=== PATIENT | female | born 1940 | race Caucasian/White ===

== ENCOUNTER 2019-08-29 10:22 | Outpatient (CLI) | payer MEDICARE, SELFPAY ==
--- NOTE | 2019-08-29 10:30 | MM_ITS ---
WS: [id number] BILATERAL DIGITAL SCREENING MAMMOGRAM WITH CAD CLINICAL INFORMATION: SCREENING HISTORY: Screening mammogram. No current complaints. COMPARISON: TECHNIQUE: Bilateral CC and MLO views. FINDINGS: Fatty-replaced breasts bilaterally. A few stable punctate calcifications. No suspicious focal mass, a symmetry, calcifications, or architectural distortion. No evidence of malignancy. MM/[place] [id number] IMPRESSION: BI-RADS: 2-Benign FOLLOW UP: 1 Year Follow-up Recommend return to annual screening mammography.
== END 2019-08-29 10:23 | disposition home or self-care (01) ==
LOC: RADSHAW 10:26
PROVIDERS: Family Provider Family Medicine; PCP Family Medicine; Visit Provider Family Medicine
DX: Z12.31 Encounter for screening mammogram for malignant neoplasm of breast (principal)
CPT/HCPCS: 77067

== ENCOUNTER 2020-02-19 13:11 | Outpatient (CLI) | payer MEDICARE, SELFPAY ==
--- NOTE | 2020-02-19 13:19 | USCV_ITS ---
Marika Manning Age: 79 Gender: F : 1940 Exam Date: 02/19/2020 13:15 Ordering Phys: Wanda Kaur MD Technologist: Fariba Sapp Exam Location: [facility] – [place] Indication: CAROTID STENOSIS Risk Factors: None Previous Vascular Surgery: None Right Brachial BP: / Left Brachial BP: / Right Left Velocity (cm/s) Spectral Plaque Velocity (cm/s) Spectral Plaque Syst/Diast Broadening Syst/Diast Broadening 81.60/ 18.70 Prox CCA 56.50 / 17.30 66.20/ 15.40 Mid CCA 58.50 / 18.90 63.00/ 18.70 Distal CCA 55.90 / 15.60 56.85/ 14.60 Prox ICA 63.20 / 26.30 62.10/ 16.90 Mid ICA 77.50 / 32.80 41.90/ 16.90 Distal ICA 53.30 / 21.90 79.75 ECA 48.40 0.94 ICA/CCA 1.33 Antegrade Vertebral Antegrade 32.20/ 11.70 cm/s 32.40/ 12.40 cm/s Tri Subclavian Tri 99.80 145.5 0 CONCLUSIONS Right ICA stenosis <50%. Mild atheromatous plaque right carotid bulb/ICA. Left ICA stenosis <50%. Moderate atheromatous plaque left carotid bulb/ICA. Normal antegrade Doppler flow noted in the right vertebral artery. Normal antegrade Doppler flow noted in the left vertebral artery. Damaso Diaz MD (Electronically Signed) Final Date: 19 February 2020 15:56 S
== END 2020-02-19 13:12 | disposition home or self-care (01) ==
LOC: US 13:14
PROVIDERS: PCP Family Medicine; Visit Provider Family Medicine
DX: I65.23 Occlusion and stenosis of bilateral carotid arteries (principal)
CPT/HCPCS: 93880

== ENCOUNTER 2020-08-03 15:22 | Outpatient (CLI) | payer MEDICARE, SELFPAY ==
--- NOTE | 2020-08-03 15:27 | XR_ITS ---
WS: [id number] Bone mineral density performed on a XD NutritionXA, 08/03/2020 Clinical data: ASYMPTOMATIC POSTMENOPAUSAL STATE Comparison study: DEXA scan, 07/17/2018 Findings: The first 4 lumbar vertebral bodies demonstrated the bone mineral density of 1.199 g/cm2 for a young adult T score of 0.2. Measurement of the left hip reveals a bone mineral density of 0.858 g/cm2 with a young adult T score of -1.2. Measurement of the right hip reveals the bone mineral density of 0.941 g/cm2 for young adult T score of -0.5. XR/XR DEXA axial skeleton* [id number] Impression: 1. The bone mineral density of the lumbar spine has diminished slightly but is still normal. 2. The bone mineral density of the hips has diminished slightly compared to the prior study. 3. The left hip shows osteopenia and the right hip shows normal bone mineral de nsity.
== END 2020-08-03 15:23 | disposition home or self-care (01) ==
LOC: RADWPI 15:27
PROVIDERS: PCP Family Medicine; Visit Provider Family Medicine
DX: Z78.0 Asymptomatic menopausal state (principal); M85.88 Other specified disorders of bone density and structure, other site
CPT/HCPCS: 77080

== ENCOUNTER 2020-09-02 07:26 | Outpatient (CLI) | payer MEDICARE, SELFPAY ==
[2020-09-02 07:41] VITALS: BMI 31.4
--- NOTE | 2020-09-02 07:43 | NMCV_ITS ---
NM jia perf SPECT r/s* [id number] Marika Manning Age: 80 Gender: F : 1940 Exam Date: 09/02/2020 08:53 Ordering Phys: Mel Araujo MD ([email or web address]) Technologist: OLIVIA Rouse Exam Location: [facility] Indications: SOB STRESS TEST Please see [facility] IMAGE PROTOCOL Rest/Stress 1 Lexiscan Day Radiopharmaceutical Dose (mCi) Administration Site Administered by Rest: Tc-99m 10.7 IV OLIVIA Rouse Sestamibi Stress:Tc-99m 32.8 IV OLIVIA Rouse Sestamibi Rest: 02-Sep-2020 60 Discovery 630 Stress: 02-Sep-2020 45 Discovery 630 0.4mg Lexiscan. Supine position only as patient was unable to lay prone. SPECT RESULTS Technical Quality: Good Raw Data Analysis: Breast attenuation Image Corrections: No attenuation or motion correction applied Summed Stress Score: 4 Summed Rest Score: 2 Summed Difference Score: 3 PERFUSION FINDINGS Small to moderate area of decreased tracer uptake in the mid inferolateral and apical lateral segments. A subtle area of reversibility was noted in the inferolateral region FUNCTIONAL RESULTS (calculated via Gated SPECT) Stress Image LV EF (%): 71 Stress EDV (mL):66 TID: 1.23 Stress ESV (mL):19 FUNCTIONAL FINDINGS: Segmental wall motion analysis revealing no gross wall motion normalities IMPRESSIONS 1. Myocardial perfusion imaging revealing a small to moderate area of decreased tracer uptake in the mid inferolateral and apical lateral regions, with a subtle area of reversibility suggestive of myocardial scarring in the distribution of the left circumflex artery with subtle areaof ischemia. 2. Normal LV ejection fraction 71%. 3. LV wall motion analysis revealing no gross wall motion normalities. 4. Normal LV volume 5. Elevated transient ischemic dilatation ratio, may suggest endocardial ischemia. Clinical correlation is recommended. No previous studies are available for comparison Dr Mel Araujo MD FACC (Electronically Signed) Final Date: 02 September 2020 18:28 S
--- NOTE | 2020-09-02 07:43 | ECG_ITS ---
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 Interpretive Statements NAME OF STUDY: LEXISCAN SESTAMIBI STRESS TEST INDICATION: Chest Pain PROCEDURE: At the baseline, the EKG revealed sinus bradycardia with a rate of [address]-T changes. The baseline blood pressure was 136/90 mm Hg with a heart rate of 58 beats/min. Lexiscan was infused over a period of 20 seconds. A total of 0.4 milligrams of Lexiscan was infused. The stress phase was continued for a total of 5 minutes. Heart rate at the end of the stress phase was 68 with a blood pressure 150/86. The EKG at the peak infusion revealed no significant changes. Sestamibi was injected 20 seconds after the Lexiscan infusion. Blood pressure at the end of the recovery phase was 153/87 with a heart rate of 63 per minute. CONCLUSION: 1. No significant EKG changes with the LexiScan infusion 2. No LexiScan induced chest pain or cardiac arrhythmia 3. Normal blood pressure and heart rate response 4. Sestamibi/sestamibi perfusion scan pending; see separate report. Electronically Signed On 09-03-2020 13:56:17 AUDITING CLERK by Mel Araujo M.D. [id number]
[2020-09-02] MEDS: regadenoson 0.4 Mg/5 ml Syringe IVP (09:23)
[2020-09-02 09:53] VITALS: BP 153/87; PULSE 64
== END 2020-09-02 07:27 | disposition home or self-care (01) ==
PROVIDERS: PCP Family Medicine; Visit Provider Internal Medicine Cardiovascular Disease
DX: R06.02 Shortness of breath (principal); R07.89 Other chest pain; I25.9 Chronic ischemic heart disease, unspecified
CPT/HCPCS: 78452; 93017; A9500; J2785

== ENCOUNTER 2020-11-12 13:21 | Outpatient (CLI) | payer MEDICARE, SELFPAY ==
--- NOTE | 2020-11-12 13:25 | MM_ITS ---
WS: [id number] BILATERAL SCREENING DIGITAL MAMMOGRAM WITH CAD HISTORY: SCREENING COMPARISON: 08/29/2019, 07/17/2018 Bilateral CC and MLO views submitted. Computer aided detection analyzed. Breast composition: There are scattered areas of fibroglandular density. No suspicious masses, microc alcifications or architectural distortion. Benign calcifications in each breast. MM/[place] [id number] IMPRESSION: BI-RADS: 2-Benign FOLLOW UP: 1 Year Follow-up
== END 2020-11-12 13:22 | disposition home or self-care (01) ==
LOC: RADSHAW 13:25
PROVIDERS: PCP Family Medicine; Visit Provider Family Medicine
DX: Z12.31 Encounter for screening mammogram for malignant neoplasm of breast (principal)
CPT/HCPCS: 77067

== ENCOUNTER 2021-03-15 13:47 | Outpatient (CLI) | payer MEDICARE, SELFPAY ==
--- NOTE | 2021-03-15 13:53 | USCV_ITS ---
Marika Manning Age: 80 Gender: F : 1940 Exam Date: 03/15/2021 14:13 Ordering Phys: Wanda Kaur MD Technologist: Exam Location: [facility] [place] Indication: HX OF CCA DISEASE Risk Factors: Previous Vascular Surgery: Right Brachial BP: / Left Brachial BP: / Right Left Velocity (cm/s) Spectral Plaque Velocity (cm/s) Spectral Plaque Syst/Diast Broadening Syst/Diast Broadening 60.50/ 14.30 Prox CCA 57.10 / 15.00 55.50/ 16.80 Mid CCA 59.10 / 14.00 59.70/ 12.60 Hetro Distal CCA 42.60 / 12.40 Hetro 48.70/ 11.80 Prox ICA 37.30 / 9.50 51.30/ 8.40 Mid ICA 50.30 / 19.50 60.50/ 20.20 Distal ICA 70.60 / 19.30 67.20 ECA 55.10 1.00 ICA/CCA 1.19 Vertebral Antegrade 34.60/ 11.00 cm/s 35.00/ 13.00 cm/s Tri Subclavian Tri 98.20 CONCLUSIONS Right ICA stenosis <50%. Mild atheromatous plaque right carotid bulb/ICA. Left ICA stenosis <50%. Mild atheromatous plaque left carotid bulb/ICA. Normal antegrade Doppler flow noted in the right vertebral artery. Normal antegrade Doppler flow noted in the left vertebral artery. Damaso Diaz MD (Electronically Signed) Final Date: 15 March 2021 15:46 S
== END 2021-03-15 13:48 | disposition home or self-care (01) ==
LOC: US 13:50
PROVIDERS: PCP Family Medicine; Visit Provider Family Medicine
DX: I65.23 Occlusion and stenosis of bilateral carotid arteries (principal)
CPT/HCPCS: 93880

== ENCOUNTER 2022-02-23 10:37 | Outpatient (CLI) | payer MEDICARE, SELFPAY ==
--- NOTE | 2022-02-23 10:58 | MM_ITS ---
WS: [id number] Bilateral screening 3D tomosynthesis digital mammogram, 02/23/2022 Clinical Data: SCREENING Comparison: 11/12/2020, 08/29/2019, 07/17/2018, 07/04/2017, 06/21/2016, 06/18/2015, 06/09/2014, 06/05/20 13, 05/17/2012, 02/28/2011, 01/31/2010, 12/22/2008, 11/18/2007. Findings: The breast parenchymal pattern shows fat replacement. No spiculated masses or clustered calcification s are seen. There are no secondary signs of carcinoma. There are mole markers on the left breast. The re are lymph nodes in both axilla. MM/[place] [id number] Impression: 1. Negative bilateral mammogram unchanged. 2. Recommend annual screening mammograms. BIRADS: 1-Negative FOLLOW UP: 1 Year Follow-up The CAD wash test checker was used.
== END 2022-02-23 10:38 | disposition home or self-care (01) ==
LOC: RAD 10:38
PROVIDERS: PCP Family Medicine; Visit Provider Family Medicine
DX: Z12.31 Encounter for screening mammogram for malignant neoplasm of breast (principal)
CPT/HCPCS: 77063; 77067

== ENCOUNTER → 2022-03-16 15:30 | Outpatient (BNVA) | payer MEDICARE, SELFPAY | PROVIDERS: PCP Family Medicine; Visit Provider Internal Medicine Cardiovascular Disease | DX: R06.02 Shortness of breath (principal); R07.89 Other chest pain; I50.33 Acute on chronic diastolic (congestive) heart failure | CPT/HCPCS: 36415; 80048; 83880; 99214 ==

== ENCOUNTER 2022-04-12 08:32 | Outpatient (CLI) | payer MEDICARE, SELFPAY ==
[2022-04-12 09:36] VITALS: BMI 30.3
--- NOTE | 2022-04-12 09:38 | ECG_ITS ---
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 Interpretive Statements NAME OF STUDY: LEXISCAN SESTAMIBI STRESS TEST INDICATION: Chest Pain, PROCEDURE: At the baseline, the EKG revealed sinus bradycardia with right bundle branch block. Diffuse nonspecific T wave changes. The baseline blood pressure was 105/69 mm Hg with a heart rate of 53 beats/min. Lexiscan was infused over a period of 20 seconds. A total of 0.4 milligrams of Lexiscan was infused. The stress phase was continued for a total of 5 minutes. Heart rate at the end of the stress phase was 74 with a blood pressure 102/67. The EKG at the peak infusion revealed no significant changes. Sestamibi was injected 20 seconds after the Lexiscan infusion. Blood pressure at the end of the recovery phase was 112/68 with a heart rate of 71 per minute. CONCLUSION: 1. No significant EKG changes with the LexiScan infusion 2. No LexiScan induced chest pain or cardiac arrhythmia 3. Normal blood pressure and heart rate response 4. Sestamibi/sestamibi perfusion scan pending; see separate report. Electronically Signed On 04-12-2022 23:50:24 CDT by Mel Araujo M.D. [id number]
--- NOTE | 2022-04-12 09:39 | NMCV_ITS ---
NM jia perf SPECT r/s* [id number] Marika Manning Age: 81 Gender: F : 1940 Exam Date: 04/12/2022 09:39 Ordering Phys: Mel Araujo MD ([email or web address]) Technologist: OLIVIA Dunaway Exam Location: [facility] Indications: CHEST PAIN STRESS TEST Please see separate [facility] for full [facility] IMAGE PROTOCOL Rest/Stress 1 Lexiscan Day Radiopharmaceutical Dose (mCi) Administration Site Administered by Rest: Tc-99m 10.6 IV OLIVIA Rouse Sestamibi Stress:Tc-99m 33.0 IV OLIVAI Rosue Sestamibi Rest: 12-Apr-2022 60 Discovery 630 Stress: 12-Apr-2022 30 Discovery 630 0.4mg Lexiscan. Images obtained in supine and prone position. SPECT RESULTS Technical Quality: Excellent Raw Data Analysis: Normal Image Corrections: No attenuation or motion correction applied Summed Stress Score: 2 Summed Rest Score: 2 Summed Difference Score: 0 PERFUSION FINDINGS Small area of slightly decreased tracer uptake in the mid inferolateral and apical lateral regions. No significant reversibility was noted in this region. FUNCTIONAL RESULTS (calculated via Gated SPECT) Stress Image LV EF (%): 82 Stress EDV (mL):68 TID: 0.84 Stress ESV (mL):12 FUNCTIONAL FINDINGS: Segmental wall motion analysis revealing no gross wall motion abnormalities IMPRESSIONS 1. Myocardial perfusion imaging revealing small area of persistent decreased tracer uptake in the mid inferolateral and apical lateral regions, suggestive of myocardial scarring versus attenuation artifact. 2. Normal LV ejection fraction of 82%. 3. LV wall motion analysis revealing no gross wall motion normalities. 4. Normal LV volume Low probability for coronary ischemia, based on the above findings Compared to the study from 09/02/2020, the current study does not reveal any evidence of ischemia Dr Mel Araujo MD [facility] (Electronically Signed) Final Date: 12 April 2022 19:01 S
[2022-04-12] MEDS: regadenoson 0.4 Mg/5 ml Syringe IVP (10:43)
== END 2022-04-12 08:33 | disposition home or self-care (01) ==
PROVIDERS: PCP Family Medicine; Visit Provider Internal Medicine Cardiovascular Disease
DX: R07.9 Chest pain, unspecified (principal)
CPT/HCPCS: 78452; A9500; J2785

== ENCOUNTER 2022-07-09 09:58 | Emergency (ER) | payer MEDICARE, SELFPAY ==
[2022-07-09 10:20] VITALS: BP 172/115; PULSE 55; RESP 16; TEMP 36.6; O2SAT 94
[2022-07-09 10:24] VITALS: PULSE 53; O2SAT 95
--- NOTE | 2022-07-09 10:38 | XRR_ITS ---
PROCEDURE INFORMATION: Exam: XR Left Tibia and Fibula Exam date and time: 07/09/2022 12:01 PM Age: 81 years old Clinical indication: Injury or trauma; Other: Hit with shopping cart; Blunt trauma; Lower leg; Left TECHNIQUE: Imaging protocol: Radiologic exam of the Left tibia and fibula. Views: 2 views. COMPARISON: No relevant prior studies available. FINDINGS: Bones/joints: Negative for acute bony abnormality Soft tissues: Soft tissue edema is seen in the lateral ankle consistent with a sprain injury XR/XR tibia fibula LT 2V [id number] IMPRESSION: 1. No acute bone abnormality. 2. Soft tissue edema consistent with inversion sprain
--- NOTE | 2022-07-09 10:41 | W.ED.EXTPRO ---
HPI - Extremity Problem General: Chief complaint: Extremity Injury, Lower Stated complaint: Left injury Time Seen by Provider: 07/09/22 10:27 History of Present Illness: 81-year-old female presents with left lower leg injury. Patient reports that she was pulling on a stuck grocery cart when it rapidly came out and struck her in the lower leg. This happened about a week ago. She is has an area of bruising and swelling is extremely painful with the whole left lower leg swollen. She was seen in urgent care 2 days ago and started on antibiotics with concern for a possible infection. Patient reports that she continues to have significant pain when she stands up in the area. She does not have any posterior calf pain. She has not had an x-ray of the area. Review of Systems General: Reports: 10 or more systems reviewed and unremarkable except in HPI and below Musc: Reports: other (Please see HPI) Skin/Breast: Reports: other (Please see HPI) PFSH ED PFSH: Medical History Atypical chest pain EKG done on 07/12/2020 revealed a sinus rhythm with low voltage complexes in the precordial leads. Poor R wave progression. Benign essential HTN Old cerebrovascular accident (CVA) without late effect Tricuspid regurgitation Ventricular arrhythmia Surgical History History of nasal surgery Hx of cataract extraction Hx of cholecystectomy Hx of hysterectomy Family History Father Bleeding disorder CAD (coronary artery disease) Lung disease Stroke Brother CAD (coronary artery disease) Lung disease Sister CAD (coronary artery disease) Family/Other CAD (coronary artery disease) Cancer Grandmother Diabetes Grandfather Lung disease Denies family history of Clotting disorder Dementia Chronic kidney disease (CKD) Suicide Anesthesia complication Social History Smoking and tobacco status: never smoked Alcohol intake: never Physical Exam Const: COMMON NORMALS: no acute distress, patient oriented x3 and healthy appearing Eye: COMMON NORMALS: EOMs intact bilaterally and conjunctivae normal CONJUNCTIVA: Yes conjunctivae normal Resp: COMMON NORMALS: normal respiratory effort, No use of accessory muscles and clear to auscultation bilaterally AUSCULTATION: clear to auscultation bilaterally Cardio: COMMON NORMALS: regular rate and regular rhythm RATE: regular rate RHYTHM: regular rhythm PERIPHERAL PULSES: dorsalis pedis present GI: COMMON NORMALS: Soft to palpation and non-tender PALPATION: Yes Soft to palpation Extremity: LEFT LOWER EXTREMITY: Yes lower leg (Mild swelling throughout lower leg with an approximate 4 cm circular ecchym) Neuro: COMMON NORMALS: patient oriented x3 Psych: COMMON NORMALS: mental status grossly normal, Normal thought process present, cooperative and speech normal SPEECH: Yes normal speech THOUGHT PROCESS: Normal thought process present Skin: GENERAL SKIN EXAM: ecchymosis (Left lower leg) and erythema Course Vital Signs: Vital signs: Vital Signs Temperature 97.8 F 07/09/22 10:20 Pulse Rate 53 L 07/09/22 10:24 Respiratory Rate 16 07/09/22 10:20 Blood Pressure 172/115 07/09/22 10:20 Pulse Oximetry 95 07/09/22 10:24 Oxygen Delivery Me thod 07/09/22 10:24 MDM - Extremity (Nontraumatic) Medical Decision Making Patient's x-ray shows no acute fractures or findings. Patient with some left leg swelling and a hematoma resulting from her being on a blood thinner. At this time I do not see a significant infection however she can continue her antibiotics as is already prescribed. Recommended topical lidocaine, ice and an [place] wrap. She is to follow-up with her primary care provider if symptoms or not improving over the next week for recheck of her symptoms Lab Data Radiology Impressions Tibia/Fibula X-Ray 07/09/22 10:38 IMPRESSION: 1. No acute bone abnormality. 2. Soft tissue edema consistent with inversion sprain Discharge Plan Discharge Patient Disposition: Home Clinical Impression: Hematoma of left lower extremity Condition: Stable Prescriptions: No Action losartan 25 mg tablet 25 mg PO DAILY 30 Days Qty: 30 5RF metoprolol tartrate 50 mg tablet 75 mg PO BID omeprazole 40 mg capsule,delayed release(DR/EC) 40 mg PO DAILY clopidogrel 75 mg tablet 75 mg PO DAILY levothyroxine 25 mcg tablet 25 mcg PO DAILY nitroglycerin 0.4 mg tablet, sublingual 0.4 mg sublingual Q5M PRN (Reason: chest pain) 30 Days Qty: 30 3RF Rx Instructions: until response; do not exceed 3 doses per episode potassium chloride 10 mEq tablet extended release 10 meq PO BID furosemide 40 mg tablet 40 mg PO DAILY Qty: 90 3RF Rx Instructions: Can take an extra furosemide 40mg PRN swelling and shortness of breath. Discharge Orders: Discharge ED (Routine); Ordered 07/09/22 Ordered By: James Chaves Referrals: Wanda Kaur MD [Primary Care Provider] - Discharge Diet: Usual diet Discharge Activity: Resume usual activity Patient Instructions: Hematoma (ED), Bone Bruise (ED), Opioid Safety, Pain Management Activity Restrictions/Additional Instructions: 4% topical lidocaine as needed for discomfort use as directed on package, ice or warm moist heat to lower extremity, use whichever one is most effective for pain control. Ibuprofen or Tylenol as needed for pain. If your symptoms have not improved in 1 week follow-up with your primary care provider for recheck of symptoms and further evaluation Coding Level of Care Code ED Breakfast And Room Attendant for Osman Fwd Exam Comprehensive
[2022-07-09 11:56] VITALS: PULSE 65; O2SAT 98
== END 2022-07-09 11:55 | disposition home or self-care (01) ==
PROVIDERS: Emergency Provider Student in an Organized Health Care Education/Training Program; PCP Family Medicine
DX: S80.12XA Contusion of left lower leg, initial encounter (principal); W22.8XXA Striking against or struck by other objects, initial encounter; Z79.02 Long term (current) use of antithrombotics/antiplatelets; Z79.2 Long term (current) use of antibiotics
CPT/HCPCS: 73590; 99283

== ENCOUNTER 2022-08-30 14:41 | Outpatient (CLI) | payer MEDICARE, SELFPAY ==
--- NOTE | 2022-08-30 14:58 | XR_ITS ---
WS: [id number] DEXA (DUAL ENERGY X-RAY ABSORPTIOMETRY) Bone mineral density was performed using a dELiAs machine. HISTORY: ASYMPTOMATIC MENOPAUSAL STATE COMPARISON: 08/03/2020 Lumbar spine BMD (L1-L4): 1.231 g/cm2 T score: 0.4 Z score: 1.8 Total hip BMD: Left: 0.874 g/cm2. T score: -1.1 Z score: 0.7 Right: 0.928 g/cm2. T score: -0.6 Z score: 1.1 10 year probability of a major osteoporotic fracture is 25.6%. Compared to the prior study from 08/03/2020. Lumbar spine bone mineral density has increased by 2.7%. Bilateral hips bone mineral density has increased by 0.2%. XR/XR DEXA axial skeleton* [id number] IMPRESSION: OSTEOPENIA based upon the WHO classification for females. Minimal significant increase in bone mineral density within the lumbar spine si nce the prior study.
== END 2022-08-30 14:42 | disposition home or self-care (01) ==
LOC: RAD 14:45
PROVIDERS: PCP Family Medicine; Visit Provider Family Medicine
DX: Z78.0 Asymptomatic menopausal state (principal); M85.80 Other specified disorders of bone density and structure, unspecified site
CPT/HCPCS: 77080

== ENCOUNTER → 2022-12-20 13:58 | Outpatient (BNVA) | payer MEDICARE, SELFPAY | PROVIDERS: PCP Family Medicine; Visit Provider Internal Medicine Cardiovascular Disease | DX: I49.8 Other specified cardiac arrhythmias (principal); Z86.73 Personal history of transient ischemic attack (TIA), and cerebral infarction without residual deficits; I10 Essential (primary) hypertension; I36.1 Nonrheumatic tricuspid (valve) insufficiency; M79.89 Other specified soft tissue disorders | CPT/HCPCS: 99214 ==

== ENCOUNTER 2023-03-06 12:55 | Outpatient (CLI) | payer MEDICARE, SELFPAY ==
--- NOTE | 2023-03-06 | MM_ITS ---
WS: [id number] VIEWS: MLO and CC views both breasts. 3D digital tomosynthesis is also included in this exam. Comparison made with prior exam of 06/21/2016, 07/04/2017, 07/17/2018, 08/29/2019, 02/23/2022.. Findings: There is 6 mm nodule identified in the anterior left breast slightly lateral to the margin of the nip ple. This is slightly more prominent than noted on the last exam. There are additional scattered nodu lar densities in both breasts which are stable in appearance. Regional ultrasound of the anterior lef t breast with the compression spot views would be recommended for further evaluation. No new finding in the right breast..There are scattered areas of fibroglandular density in both breasts. MM/[place] [id number] Impression: BI-RADS: 0-Incomplete: Need additional imaging evaluation FOLLOW-UP: See Report This mammogram was also analyzed by the Computer Aided Detection System R2 Imag e Optical Engineer.
== END 2023-03-06 12:56 | disposition home or self-care (01) ==
PROVIDERS: PCP Family Medicine; Visit Provider Family Medicine
DX: Z12.31 Encounter for screening mammogram for malignant neoplasm of breast (principal)
CPT/HCPCS: 77063; 77067

== ENCOUNTER 2023-04-02 13:31 | Outpatient (CLI) | payer MEDICARE, SELFPAY ==
--- NOTE | 2023-04-02 13:46 | MM_ITS ---
WS: [id number] LEFT 3D TOMOSYNTHESIS DIGITAL MAMMOGRAPHY WITH CAD CLINICAL INFORMATION: ABNORMAL MAMMO HISTORY: Additional views COMPARISON: 03/06/2023 TECHNIQUE: 3 views of the left breast were obtained. FINDINGS: Scattered fibroglandular densities of the left breast. Stable previously described 6 mm nodule in the anterior left breast lateral to the nipple. This is unchanged from the prior screening mammogram. Ul trasound described below. ULTRASOUND BREAST LEFT TECHNIQUE: Ultrasound left breast focused area of concern. CLINICAL INFORMATION: ABNORMAL MAMMO FINDINGS: Ultrasound left breast at the areola. Simple appearing cyst at the left areola measuring 5.3 x 5.1 x 5.0 mm corresponds to the mammographic findings. No other suspicious lesions. No lesions to target fo r biopsy. Recommend return to annual screening mammography. IMPRESSION: MM/[place] [id number] BI-RADS: 2-Benign FOLLOW UP: 1 Year Follow-up Recommend return to annual screening mammography.
== END 2023-04-02 13:32 | disposition home or self-care (01) ==
PROVIDERS: PCP Family Medicine; Visit Provider Family Medicine
DX: R92.8 Other abnormal and inconclusive findings on diagnostic imaging of breast (principal); N60.02 Solitary cyst of left breast
CPT/HCPCS: 76642; 77061; G0279

== ENCOUNTER → 2023-07-04 13:55 | Outpatient (BNVA) | payer MEDICARE, SELFPAY | PROVIDERS: PCP Family Medicine; Visit Provider Internal Medicine Cardiovascular Disease | DX: I49.8 Other specified cardiac arrhythmias (principal); I10 Essential (primary) hypertension; I36.1 Nonrheumatic tricuspid (valve) insufficiency; Z86.73 Personal history of transient ischemic attack (TIA), and cerebral infarction without residual deficits; M79.89 Other specified soft tissue disorders | CPT/HCPCS: 99214 ==

== ENCOUNTER 2023-11-27 12:02 | Observation (INO) | payer MEDICARE, SELFPAY ==
--- NOTE | 2023-11-22 10:41 | ECG_ITS ---
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 Measurements Intervals [place] Rate: 55 P: -8 [place]: 176 QRS: -25 QRSD: 141 T: -33 QT: 486 QTc: 465 Interpretive Statements SINUS BRADYCARDIA BORDERLINE LEFT AXIS DEVIATION [QRS AXIS < -20] RIGHT BUNDLE BRANCH BLOCK [120+ ms QRS DURATION, UPRIGHT V1, 40+ ms S IN I/aVL/V4/V5/V6] Compared to ECG 04/06/2016 17:08:25 Right bundle-branch block now present Sinus rhythm no longer present Myocardial infarct finding no longer present T-wave abnormality no longer present Possible ischemia no longer present Electronically Signed On 11-23-2023 17:26:36 CDT by Mel Araujo M.D. [id number]
[2023-11-22 10:43] LABS: Add Urine Microscopic? NO; Charge for UA Resulting for Rev
[2023-11-22 10:56] LABS: Basophils % 0.5 %; Eosinophils # 0.1 10^3/uL (0.0-0.8); Eosinophils % 1.2 %; Hematocrit 44.8 % (36-47); Lymphocytes # 2.9 10^3/uL (0.8-4.8); Lymphocytes % 49.5 %; Mean Corpuscular HGB Conc 33.3 g/dL (30-55); Mean Corpuscular Hemoglobin 30.7 pg (27-33); Mean Corpuscular Volume 92.2 fl (85-98); Mean Platelet Volume 9.9 fL (7.4-10.4); Monocytes # 0.6 10^3/uL (0.2-0.9); Monocytes % 9.6 %; Neutrophils # 2.31 10^3/uL (1.8-7.7); Nucleated Red Blood Cells % 0 %; Platelet Count 187 10^3/cmm (157-399); Red Blood Count 4.86 10^6/uL (3.85-5.65); Red Cell Distribution Width 13.2 % (12.1-15.1); White Blood Count 5.92 10^3/uL (3.29-11.43)
--- NOTE | 2023-11-22 10:58 | ANES.PREANE2 ---
Pre-Anesthetic Assessment Height/Weight: Height 1.57 m Operation Date: 11/27/23 09:45 Proposed Procedures p Anterior and posterior colporrhaphy 37324, Single incision sling 84405, N81.10, N81.6(Not Applicable) - Junior Garrido MD s Posterior Repair(Not Applicable) - Junior Garrido MD s Sling Single Incision Sling(Not Applicable) - Junior Garrido MD Familial anesthetic complications: None Social No alcohol and No tobacco Exam alert, oriented x 3, clear to auscultation bilaterally and regular rate & rhythm Airway Mallampati: Class II Dentition: false Pulmonary None reported CV/HEM tricuspid regurge (mod), PVCs, atypical stable angina Neuropsych Cerebrovascular Accident (on plavix) Anesthetic Plan ASA status: 3 Anesthesia: General Risk of > 500 ml blood loss (7ml/kg in children): No Medications/Allergies Home Medications Medication Instructions Recorded Confirmed Last Taken Type clopidogrel 75 mg tablet 75 mg PO DAILY 07/12/20 11/22/23 11/18/23 History levothyroxine 25 mcg tablet 25 mcg PO DAILY 07/12/20 11/22/23 11/22/23 History metoprolol tartrate 50 mg tablet 75 mg PO BID 07/12/20 11/22/23 11/22/23 History nitroglycerin 0.4 mg sublingual 0.4 mg sublingual Q5M PRN chest 07/12/20 11/22/23 Unknown Rx tablet pain 30 days #30 tabs omeprazole 40 mg capsule,delayed 40 mg PO DAILY 07/12/20 11/22/23 11/22/23 History release potassium chloride 10 mEq 10 meq PO BID 03/14/21 11/22/23 11/22/23 History tablet,extended release furosemide 40 mg tablet 40 mg PO DAILY #90 tabs 03/20/22 11/22/23 11/22/23 Rx losartan 50 mg tablet 50 mg PO DAILY #90 tabs 07/04/23 11/22/23 11/22/23 Rx Allergies Allergy/AdvReac Type Severity Reaction Status Date / Time No Known Allergies Allergy Unverified 11/19/23 08:51 [facility] Anesthesia Medical History Atypical chest pain EKG done on 07/12/2020 revealed a sinus rhythm with low voltage complexes in the precordial leads. Poor R wave progression. Old cerebrovascular accident (CVA) without late effect Benign essential HTN Tricuspid regurgitation Ventricular arrhythmia Surgical History Hx of hysterectomy Hx of cholecystectomy History of nasal surgery Hx of cataract extraction Family History Father Bleeding disorder CAD (coronary artery disease) Lung disease Stroke Brother CAD (coronary artery disease) Lung disease Sister CAD (coronary artery disease) Family/Other CAD (coronary artery disease) Cancer Grandmother Diabetes Grandfather Lung disease Denies family history of Clotting disorder Dementia Chronic kidney disease (CKD) Suicide Anesthesia complication Social History Smoking and tobacco/nicotine status: never used tobacco/nicotine Alcohol intake: never Substance/Drug Use: never Data Anesthesia 11/22/23 10:35 11/22/23 10:35 Short CBC 11/22/23 Range/Units 10:35 WBC 5.92 (3.29-11.43) 10^3/uL Hgb 14.90 (11.27-16.99) g/dL Hct 44.8 (36-47) % MCV 92.2 (85-98) fl Plt Count 187 (157-399) 10^3/cmm Neut % (Auto) 39.0 % Neut # (Auto) 2.31 (1.8-7.7) 10^3/uL Cardiac Studies: Sestamibi Stress Test (Cardiology) 04/12/22
[2023-11-22 10:59] LABS: Bilirubin Urine Neg (Negative); Blood Urine Neg (Negative); Glucose Urine UA Norm (Normal); Ketones Urine Negative (Negative); Leukocyte Esterase Urine Negative (Negative); Nitrate Urine Negative (Negative); Protein Urine Neg (Negative); Specific Gravity, Urine 1.005 (1.005-1.030); Urine Appearance Clear (CLEAR); Urine Color Light yellow (Yellow); Urobilinogen Urine Norm (Negative); pH Urine 7 (5-7)
[2023-11-22 11:02] LABS: Alanine Aminotransferase 8 U/L (0-33); Albumin Level 4.2 g/dL (3.5-5.2); Alkaline Phosphatase 83 U/L (35-105); Anion Gap 14.6 (5-19); Aspartate Amino Transferase 23 U/L (0-32); Blood Urea Nitrogen 17 mg/dL (8-23); Calcium 8.9 mg/dL (8.5-10.5); Carbon Dioxide 31 mmol/L (22-29); Chloride 99 mmol/L (98-107); Globulin 3.6 g/dL (1.3-4.6); Glucose 93 mg/dL (65-115); Osmolality Calculated 293 mOsm/kg (285-295); Potassium 3.6 mmol/L (3.5-5.1); Sodium 141 mmol/L (136-145); Total Bilirubin 0.9 mg/dL (0.15-1.2); Total Protein 7.8 g/dL (6.6-8.7)
[2023-11-27] VITALS (19 sets, daily range): BP systolic 101–129; BP diastolic 56–77; PULSE 56–73; RESP 12–24; TEMP 36.3–36.9; O2SAT 91–97; BMI 28.8
[2023-11-27] MEDS: enoxaparin 30 mg/0.3 mL Syringe SUBCUT (08:54)
[2023-11-27] MEDS: sodium chloride 0.9% 1,000 ML 30 ML IV (08:54)
[2023-11-27] MEDS: scopolamine 1.5 Patch 1 PATCH TRANSDERMA (08:54)
--- NOTE | 2023-11-27 09:19 | W.PM.OPSUD ---
Surgery/Procedure H&P Update DATE OF PROCEDURE: November 27, 2023 DATE H&P PERFORMED: 11/19/23 H&P UPDATE INFORMATION: I have reviewed H&P completed within last 30 days, I have examined patient prior to procedure and No changes to prior documentation PREOP DIAGNOSIS: Mixed incontinence, cystocele PLANNED PROCEDURE: Operation Date: 11/27/23 09:45 Proposed Procedures p Anterior and posterior colporrhaphy 20879, Single incision sling 03953, N81.10, N81.6(Not Applicable) - Junior Garrido MD s Posterior Repair(Not Applicable) - Junior Garrido MD s Sling Single Incision Sling(Not Applicable) - Junior Garrido MD
[2023-11-27] MEDS: ceFAZolin 2,000 MG in sodium chloride 0.9% (plus) 50 ML 100 MG IV (09:43)
[2023-11-27] MEDS: lidocaine-epi 2% PF 1:200,000 20 mL SDV INJECTION (10:17)
--- NOTE | 2023-11-27 10:36 | P.ANESUD_ITS ---
Pre-Anesthetic Update Pre-Anesthetic Assessment: Date of Surgery/Procedure: 11/27/23 Preop Jessica gnosis: Mixed incontinence, cystocele Proposed Procedure: Operation Date: 11/27/23 09:45 Proposed Procedures p Anterior and posterior colporrhaphy 10494, Single incision sling 94058, N81.10, N81.6(Not Applicable) - Junior Garrido MD s Posterior Repair(Not Applicable) - Junior Garrido MD s Sling Single Incision Sling(Not Applicable) - Junior Garrido MD Any changes to Pre-Anesthetic Assessment?: No Last Intake: Intake Last Liquid Date 11/26/23 Last Solid Date 11/26/23 Last Solid Time 19:00 Labs Last 48hrs: Blood Bank 11/27/23 08:40 Blood Type A Positive Rho(D) Type Rh positive Vitals: Temperature 97.3 F L 11/27/23 08:19 Temperature Source Temporal Artery S can 11/27/23 08:19 Pulse Rate 62 11/27/23 08:19 Respiratory Rate 16 11/27/23 08:19 Blood Pressure 106/77 11/27/23 08:19 Blood Pressure Amanda n 86 11/27/23 08:19 Pulse Oximetry 97 11/27/23 08:19 Oxygen Delivery Me thod Room Air 11/27/23 08:24 Exam: Pre-Anes Outpt Exam: alert, oriented x 3, clear to auscultation bilaterally and regular rate & rhythm Cardiac Studies: Sestamibi Stress Test (Cardiology) 04/12
--- NOTE | 2023-11-27 12:05 | P.OP_ITS ---
Operative Report Date of procedure: November 27, 2023 Pre-op diagnosis: Cystocele Rectocele Mixed urinary incontinence Post-op diagnosis: same Procedure done: Anterior colporrhaphy augmented with allograft Mid urethral single incision sling Posterior colporrhaphy Sacrospinous fixation Cystoscopy Implants: Coloplast Altis sling Coloplast dermis allograft Surgeon: Junior Garrido MD Estimated blood loss (mL): 200 IV fluids (mL): 1,100 Urine output (mL): 100 Procedure: After obtaining informed consent, the patient was taken to the operating room and placed in the supine position, given general anesthesia, and prepped and draped in sterile fashion. The abdomen, vulva and vagina were prepped and draped in a sterile manner. A time out procedure was performed. The anterior vaginal mucosa beneath the midurethra was infiltrated with 0.5% Marcaine with epinephrine. A vertical midline incision was made beneath the midurethra, nearly 1.5 cm length. Careful submucosal dissection was performed bilaterally up to the interior portion of the inferior pubic ramus. The insertion of adductor longus tendon on the patient?s pubic ramus was identified as reference land ritika. Palpated the notch along the internal edge of ischiopubic ramus where the adductor longus tendon and the inferior pubic ramus meet. The Altis single incision sling (SIS) was selected. Then the needle of the SIS inserted aiming at the location of this notch. One of the integrated self-fixating tips place onto the needle by sliding it over the end of the needle. The needle/sling assembly was inserted toward the location of identified reference notch making sure that the flat of the handle is perpendicular to the desired path. The needle was tracked along the posterior surface of the ischiopubic ramus until the midline ritika on the mesh is approximately at the midline position under the urethra. The needle was removed and the same was repeated on the contralateral side until the appropriate sling tension under the urethra was achieved ensuring that the mesh lays flat. The needle was removed and vaginal incision was closed in a running interlocking fashion with 2-0 Vicryl. The vaginal mucosa was then injected in the midline with normal saline. The vaginal mucosa was scored in the midline with the Bovie approximately 1 cm medial to the urethral meatus to 1 cm distal to the vaginal cuff. This vaginal mucosa was then undermined and then incised in the midline with the Metzenbaum scissors. The lateral aspects of the vaginal mucosa were then grasped with the Allis clamps and the vaginal mucosa was then dissected off the underlying fascia with the Metzenbaum scissors. Again, there was noted to be quite a bit of oozing at the incision, which was controlled with cautery. After adequate dissection was performed, bilaterally. An Coloplast dermis allograft was modified at time of application to fit spacea, 4 x 3 cm piece . The allograft placed in front of cystocele ready to be implanted facing the vagina mucosa. Suture is placed at distal end of graft and placed towards vaginal cuff. Final suture is placed on proximal portion of the graft to complete the placement overlying the bladder. Then Interrupted vertical mattress sutures of 0 Vicryl were used to elevate the cystocele superiorly. The excessive vaginal mucosa was then trimmed with the Metzenbaum scissors and the vaginal mucosa was then reapproximated in the running interlocking fashion with 2-0 Vicryl. A dilute 2% lidocaine with epinephrine solution was infiltrated under the posterior vaginal mucosa midline and into the perineal body. A transverse incision was cut in the perineum. The posterior vaginal wall was opened vertically and midline up to the apex of the rectocele. The cut edges were held and splayed laterally with a series of Allis clamps. The open vaginal mucosa was then dissected laterally with a combination of sharp and blunt dissection, exposing the perirectal fascia. The posterior vaginal mucosa is opened in the routine fashion as described previously in Posterior Repair. A finger is inserted through the incision in the posterior vaginal mucosa, dissecting out the rectovaginal space (RVS). The right rectal pillar (RRP) is identified. The rectal pillar can be bluntly perforated either with the finger and with the tip of a long Za clamp. A Brekeith- Navluz retractor is used for exposing the rectovaginal space in order to enter the pararectal space with retraction of the cardinal ligament, vagina, and rectum. Displacing the rectum to the left and the cardinal ligament and ureter anteriorly. A sponge dissector is used to bluntly dissect the sacrospinous ligament removing areolar tissue. The ischial spine was palpated directly, and a area approximately 2 cm medial to the spine was selected for insertion of the Anchorsure transvaginal sacrospinous fixation system. One end of the suture of Anchoresure system inserted through the sacrospinous ligament is placed through the muscular layer of the vagina. In a similar manner, the second suture is placed. The opposite end of the suture in the sacrospinous ligament is left free and held on a small hemostat. Then traction on this suture will draw the vaginal vault directly to the ligament, where a square knot affixes it to the sacrospinous ligament. After the alireza stich is tied the second safety stich is tied. Then the colporrhaphy/vaginal repair is carried out in routine fashion. The perirectal fascia was then reapproximated with interrupted #2-0 Vicryl sutures to draw the lateral folds together and tuck the rectocele back. Deep interrupted sutures of #0 Vicryl were used to reapproximate the fibers of the levator ani muscles. The excess vaginal mucosa was trimmed. The posterior vaginal wall was closed with a running locked #0 Vicryl to the hymenal tags. The superficial perineal muscles were closed with running unlocked #0 Vicryl and the perineal skin was closed with running subcuticular #2-0 Vicryl. Then the Peres catheter was removed and cystoscope was inserted. The bladder was filled with sterile water. Complete evaluation of the bladder mucosa was performed noting no lacerations, dimpling, tears, bleeding of the mucosa or muscular layers. Both ureteral orifices were identified. Prompt excretion of urine from both ureteral orifices was noted. Cystoscope was withdrawn. The Peres catheter was replaced. Excellent hemostasis was obtained. A vaginal pack is placed overnight as postoperative support for the vaginal tissues after graft placement and closure of vaginal incisions. Sponge, lap, needle, and instrument counts were correct times three. The patient was taken to the recovery room, awake and in stable condition.
--- NOTE | 2023-11-27 12:43 | PC.NURSE ---
1243 - report called to Kate in OB - reported to nurse that pt did have vaginal packing
[2023-11-27] MEDS: ketorolac 30 mg/mL INJ IVP ×2 (13:35→19:35)
[2023-11-27] MEDS: dextrose 5%-lactated ringers 1,000 ML 125 ML IV ×2 (13:36→21:47)
--- NOTE | 2023-11-27 14:57 | ANE.PACU2 ---
Inpatient post-anesthesia follow up: Airway intact: Yes Vital signs: Temperature 97.6 F Pulse Rate 66 Respiratory Rate 17 Blood Pressure 121/65 Pulse Oximetry 94 Oxygen Delivery Me thod Nasal Cannula Oxygen Flow Rate 2 Fraction of Inspir ed Oxygen Hydration adequate: Yes Nausea and vomiting: No Pain level: 2 Mental status: Baseline
[2023-11-27] MEDS: HYDROcodone-acetaminophen 5-325 mg Tablet PO (17:25)
[2023-11-27] MEDS: docusate sodium 100 mg Capsule PO (17:25)
[2023-11-27] MEDS: potassium chloride ER 10 mEq Tablet PO (17:25)
[2023-11-27] MEDS: metoprolol tartrate 50 mg Tablet 75 MG PO (17:26)
[2023-11-28] VITALS: BP 83/47; PULSE 70; RESP 16; TEMP 36.5; O2SAT 93
[2023-11-28 01:52] VITALS: BP 88/59; PULSE 56; RESP 16; O2SAT 93
[2023-11-28] MEDS: ketorolac 30 mg/mL INJ IVP (01:54)
[2023-11-28 03:50] VITALS: BP 87/54; PULSE 56; RESP 16; TEMP 36.9; O2SAT 94
[2023-11-28] MEDS: HYDROcodone-acetaminophen 5-325 mg Tablet PO (05:16)
[2023-11-28 05:25] LABS: Mean Corpuscular HGB Conc 33.8 g/dL (30-55); Mean Corpuscular Hemoglobin 30.9 pg (27-33); Mean Corpuscular Volume 91.4 fl (85-98); Mean Platelet Volume 10.3 fL (7.4-10.4); Platelet Count 143 10^3/cmm (157-399); Red Cell Distribution Width 12.9 % (12.1-15.1)
--- NOTE | 2023-11-28 09:11 | P.DS_ITS ---
Discharge Providers SPECIALTY FINISHING UTILITY PERSON Date of Admission: 11/27/23 12:02 Date of Discharge: 11/28/23 Attending Provider at Admission: Junior Garrido MD Attending Provider at Discharge: Junior Garrido MD Primary Care Provider: Wanda Kaur MD Reason for Visit Reason for Visit: N81.0, N81.6 Hospital Course Hospital Course Mrs. Manning 84-year-old female with a history of cystocele and rectocele stage III with associated mixed incontinence. Was admitted for planned anterior colporrhaphy augmented with allograft, mid urethral single incision sling, posterior colporrhaphy and sacrospinous fixation. The procedures were performed without complication. Overnight observation was uneventful. She is afebrile and hemodynamically stable postoperative day 1. Tolerating diet well. PVR was within normal limits. She was counseled regarding pelvic rest for 6 weeks (no sex, no tampons, no vaginal douches). Return to the emergency room if any fever, increased bleeding or pain. Physical Exam Narrative: GA: Alert and oriented ?3. HEENT: WNL. Heart: Regular rate and rhythm. Lungs: Clear to auscultation bilaterally. Abdomen: Bowel sounds present, nontender, minimal tenderness, incision clean and dry, no redness, pain or edema. PROSTHETIC TECHNICIAN: Spotting bleeding. Extremities: No edema, no cyanosis, no calves pain. Urinary Catheter Management: Peres: Cath Placed During This Visit: yes, but has since been removed by the nurse Reason for Continuing Indwelling Catheter: Decision to DC Catheter Urinary Catheter Date of Insertion: 11/27/23 Urinary Catheter Time of Insertion: 10:09 Date Urinary Catheter Removed: 11/28/23 Time Urinary Catheter Discontinued: 05:05 History History History 2 Term 2 0 Miscarriages/Ectopic 0 Living Children 2 Discharge Data Studies Completed and Pending Laboratory Results WBC 9.50 10^3/uL (3.29-11.43) 11/28/23 05:12 RBC 3.50 10^6/uL (3.85-5.65) L 11/28/23 05:12 Hgb 10.80 g/dL (11.27-16.99) L 11/28/23 05:12 Hct 32.0 % (36-47) L 11/28/23 05:12 MCV 91.4 fl (85-98) 11/28/23 05:12 MCH 30.9 pg (27-33) 11/28/23 05:12 MCHC 33.8 g/dL (30-55) 11/28/23 05:12 RDW 12.9 % (12.1-15.1) 11/28/23 05:12 Plt Count 143 10^3/cmm (157-399) L 11/28/23 05:12 MPV 10.3 fL (7.4-10.4) 11/28/23 05:12 Neut % (Auto) 39.0 % 11/22/23 10:35 Lymph % (Auto) 49.5 % 11/22/23 10:35 Curry % (Auto) 9.6 % 11/22/23 10:35 Eos % (Auto) 1.2 % 11/22/23 10:35 Baso % (Auto) 0.5 % 11/22/23 10:35 Neut # (Auto) 2.31 10^3/uL (1.8-7.7) 11/22/23 10:35 Lymph # (Auto) 2.9 10^3/uL (0.8-4.8) 11/22/23 10:35 Curry # (Auto) 0.6 10^3/uL (0.2-0.9) 11/22/23 10:35 Eos # (Auto) 0.1 10^3/uL (0.0-0.8) 11/22/23 10:35 Baso # (Auto) 0.0 10^3/uL (0.0-0.1) 11/22/23 10:35 Nucleated RBC % (auto) 0 % 11/22/23 10:35 Nucleated RBCs # 0.0 /100WBC 11/22/23 10:35 Sodium 141 mmol/L (136-145) 11/22/23 10:35 Potassium 3.6 mmol/L (3.5-5.1) 11/22/23 10:35 Chloride 99 mmol/L (98-107) 11/22/23 10:35 Carbon Dioxide 31 mmol/L (22-29) H 11/22/23 10:35 Anion Gap 14.6 (5-19) 11/22/23 10:35 BUN 17 mg/dL (8-23) 11/22/23 10:35 Creatinine 0.8 mg/dL (0.5-0.9) 11/22/23 10:35 GFR Calculation Not Reportable 11/22/23 10:35 Glucose 93 mg/dL (65-115) 11/22/23 10:35 Calculated Osmolality 293 mOsm/kg (285-295) 11/22/23 10:35 Calcium 8.9 mg/dL (8.5-10.5) 11/22/23 10:35 Total Bilirubin 0.9 mg/dL (0.15-1.2) 11/22/23 10:35 AST 23 U/L (0-32) 11/22/23 10:35 ALT 8 U/L (0-33) 11/22/23 10:35 Alkaline Phosphatase 83 U/L (35-105) 11/22/23 10:35 Total Protein 7.8 g/dL (6.6-8.7) 11/22/23 10:35 Albumin 4.2 g/dL (3.5-5.2) 11/22/23 10:35 Globulin 3.6 g/dL (1.3-4.6) 11/22/23 10:35 Urine Color Light yellow (Yellow) 11/22/23 10:30 Urine Appearance Clear (CLEAR) 11/22/23 10:30 Urine pH 7 (5-7) 11/22/23 10:30 Ur Specific [place] 1.005 (1.005-1.030) 11/22/23 10:30 Urine Protein Neg (Negative) 11/22/23 10:30 Urine Glucose (UA) Norm (Normal) 11/22/23 10:30 Urine Ketones Negative (Negative) 11/22/23 10:30 Urine Blood Neg (Negative) 11/22/23 10:30 Urine Nitrate Negative (Negative) 11/22/23 10:30 Urine Bilirubin Neg (Negative) 11/22/23 10:30 Urine Urobilinogen Norm mg/dL (Negative) 11/22/23 10:30 Ur Leukocyte Esterase Negative (Negative) 11/22/23 10:30 Blood Type A Positive 11/27/23 08:40 Rho(D) Type Rh positive 11/27/23 08:40 Antibody Screen Negative 11/27/23 08:40 Vitals Last Vital Signs Temp 98.4 F 11/28/23 03:50 Pulse 56 L 11/28/23 03:50 Resp 16 11/28/23 03:50 BP 87/54 11/28/23 03:50 Pulse Ox 94 11/28/23 03:50 O2 Del Method Room Air 11/28/23 03:50 O2 Flow Rate 2 11/27/23 18:00 Results Labs OB ([facility]): Blood Type A Positive 11/27/23 Antibody Screen Negative 11/27/23 Hct 32.0 % (36-47) L 11/28/23 Hgb 10.80 g/dL (11.27-16.99) L 11/28/23 Rho(D) Type Rh positive 11/27/23 Plt Count 143 10^3/cmm (157-399) L 11/28/23 Discharge Plan Discharge Patient Disposition: Home Condition: Stable Prescriptions: New acetaminophen 325 mg capsule 325 mg PO Q4H PRN (Reason: fever or pain) Qty: 60 0RF ibuprofen 800 mg tablet 800 mg PO TID PRN (Reason: pain) Qty: 60 0RF docusate sodium [Colace] 100 mg capsule 100 mg PO BID Qty: 30 0RF Continued metoprolol tartrate 50 mg tablet 75 mg PO BID omeprazole 40 mg capsule,delayed release(DR/EC) 40 mg PO DAILY clopidogrel 75 mg tablet 75 mg PO DAILY levothyroxine 25 mcg tablet 25 mcg PO DAILY nitroglycerin 0.4 mg tablet, sublingual 0.4 mg sublingual Q5M PRN (Reason: chest pain) 30 Days Qty: 30 3RF Rx Instructions: until response; do not exceed 3 doses per episode potassium chloride 10 mEq tablet extended release 10 meq PO BID losartan 50 mg tablet 50 mg PO DAILY Qty: 90 3RF furosemide 40 mg tablet 40 mg PO DAILY Qty: 90 3RF Rx Instructions: Can take an extra furosemide 40mg PRN swelling and shortness of breath. Discharge Orders: Discharge Order (Routine); Ordered 11/28/23 Ordered By: Junior Garrido Discharge Diet: Soft Mechanical Discharge Activity: Limit activity as instructed Patient Instructions: Opioid Safety, Bladder Sling for Women (GEN), Anterior Vaginal Repair (GEN), Posterior Vaginal Repair (GEN) Activity Restrictions/Additional Instructions: 1. Please call [facility] on next working day to make your post-operative appointment in 2 weeks. 2. Please stay home until you come back to the clinic on first post-hospatiliz ation check up. 3. Please follow instructions on your medications CAREFULLY. 4. If you have abdominal incision, do not cover it unless dressing is necessary because of drainage. OK to shower, but avoid bath. Leave steri-strips until they fall off. If they are still on one week after surgery, you may remove them. 5. If you had vaginal surgery or vaginal repair, Dr. Garrido may instruct you to take SITZ bath. 6. Yellow, blood tinged odorous vaginal discharge is usually normal after hysterectomy or vaginal surgeries. 7. No SEXUAL INTERCOURSE, tampons, or douches until you are completely released from the post-operative care. 8. Avoid constipation by eating right and maybe using some Metamucil or Milk of Magnesia. 9. All prescription refills are given during the working hours. Please do no wait till it runs out. Call the clinic at [phone] before your medication runs out. The clinic will get in touch with your doctor to prescribe medications if necessary. 10. Please remain within 40 mile radius from our hospital because emergencies do happen now and then during the post-operative period. 11. If you have stairs at home, take one step at a time slowly and minimize the number of trips. It helps to stay in one floor for the next few days. No lifting except what you can lift by one hand until you are released from the post-operative care. 12. Driving is discouraged until you are well healed. It may be 3-4 weeks before you feel strong enough to drive. You should be able to turn and look through the rear window without pain and you should be able to push the brake pedal very hard without pain before you drive. No fast rules, but SAFETY should be your primary concern. DO NOT drive if you are on sedating medications such as narcotics. 13. Call the clinic (during working hours) to make urgent appointment or go to the Emergency room, if any of the following occurs: i. Vaginal bleeding becomes heavy, more than a period. ii. Incision becomes red and sore, or drains pus. iii. Your TEMPERATURE is over 100.4F or you have chill. iv. IV site becomes red and swollen (a little ``knot?? is usually OK) v. Persistent nausea and vomiting vi. Persistent constipation or diarrhea vii. Rash or allergic reaction to medications. Discharge Attestations SPECIALTY FINISHING UTILITY PERSON Time Spent in Discharge Care*: greater than 30 min Coding Level of Care Code Acute Code for Chg Fwd
[2023-11-28 10:20] VITALS: BP 112/57; PULSE 61; RESP 16; TEMP 36.6; O2SAT 95
[2023-11-28 10:42] VITALS: BP 112/57; PULSE 61; RESP 16; TEMP 36.6; O2SAT 95
== END 2023-11-28 10:25 | disposition home or self-care (01) ==
LOC: OBGYN 12:03
PROVIDERS: Admitting Provider Obstetrics & Gynecology; PCP Family Medicine; Visit Provider Obstetrics & Gynecology
PROC: 0JQC0ZZ Repair Pelvic Region Subcutaneous Tissue and Fascia, Open Approach (ICD-10-PCS; CPT 57240; principal; 2023-11-27 09:35)
PROC: (CPT 57250; 2023-11-27 09:35)
PROC: (CPT 57288; 2023-11-27 09:35)
DX: N81.10 Cystocele, unspecified (principal); N81.6 Rectocele; Z86.73 Personal history of transient ischemic attack (TIA), and cerebral infarction without residual deficits; Z79.02 Long term (current) use of antithrombotics/antiplatelets; I10 Essential (primary) hypertension
CPT/HCPCS: 57260; 57282; 57288; 36415; 51798; 80053; 81003; 85025; 85027; 86850; 86900; 93005; 96374; 96376; C1713; C1762; G0378; J0690; J1100; J1650; J1885; J2405; J2704; J3010; J7030; J7121

== ENCOUNTER → 2024-01-02 16:11 | Outpatient (BNVA) | payer MEDICARE, SELFPAY | PROVIDERS: PCP Family Medicine; Visit Provider Internal Medicine Cardiovascular Disease | DX: R06.02 Shortness of breath (principal) | CPT/HCPCS: 36415; 80048; 83880; 99214 ==

== ENCOUNTER 2024-04-04 14:43 | Outpatient (CLI) | payer MEDICARE, SELFPAY ==
--- NOTE | 2024-04-04 14:52 | MM_ITS ---
WS: [id number] BILATERAL 3D TOMOSYNTHESIS DIGITAL SCREENING MAMMOGRAPHY WITH CAD CLINICAL INFORMATION: SCREEN HISTORY: Screening mammogram. No current complaints. COMPARISON: 2022 TECHNIQUE: Bilateral CC and MLO views. FINDINGS: Scattered fibroglandular densities bilaterally. No suspicious focal mass, asymmetry, calcifications, or architectural distortion. No evidence of malignancy. Incidental punctate calcifications. Vascular calcification. MM/[place] [id number] IMPRESSION: BI-RADS: 2-Benign FOLLOW UP: 1 Year Follow-up Recommend return to annual screening mammography.
== END 2024-04-04 14:44 | disposition home or self-care (01) ==
PROVIDERS: PCP Family Medicine; Visit Provider Family Medicine
DX: Z12.31 Encounter for screening mammogram for malignant neoplasm of breast (principal)
CPT/HCPCS: 77063; 77067

== ENCOUNTER 2024-04-23 06:00 | Outpatient (CLI) | payer MEDICARE, SELFPAY | END 2024-04-23 06:01 | disposition home or self-care (01) | LOC: RAD 04-24 07:48 | PROVIDERS: PCP Family Medicine; Visit Provider Nurse Practitioner Family | DX: R06.09 Other forms of dyspnea (principal); I10 Essential (primary) hypertension | CPT/HCPCS: 36415; 80048; 83880; 99214 ==

== ENCOUNTER 2024-05-27 12:11 | Outpatient (CLI) | payer MEDICARE, SELFPAY ==
--- NOTE | 2024-05-27 12:15 | USCV_ITS ---
Marika Manning Age: 83 Gender: F : 1940 Exam Date: 05/27/2024 12:42 Ordering Phys: Ruthie Colon Technologist: CT Exam Location: [facility] – [place] Indication: gallegos BP: 111 / 77 HR: 53 Rhythm: Sinus Technical Quality: Adequate MEASUREMENTS (Male / Female) Normal Values 2D ECHO LVOT Diameter 2.1 cm LV Ejection Fraction MOD 4C 69.6 % LV Ejection Fraction MOD 2C 56.4 % LV Ejection Fraction 2C AL 56.9 % LA Diameter 3.8 cm RA Systolic Volume 4C AL 65.1 ml RA Systolic Volume 4C MOD 63.4 ml LA Sys Volume AL 82.4 cm cubed LA Sys Volume Index AL 45.5 cm cubed/m squared Aorta at Sinotubular Diameter 2.4 cm IVC Diameter 2.3 cm M-MODE LA Ao Ratio MM 1.4 AV Cusp Separation MM 2.3 cm DOPPLER AV Peak Velocity 112.0 cm/s LVOT Peak Velocity 96.0 cm/s AV Area Cont Eq vti 2.8 cm squared AV Area Cont Eq pk 3.1 cm squared MV Peak Velocity 82.0 cm/s MV Area PHT 4.0 cm squared Mitral E to A Ratio 1.1 TV Peak Velocity 284.0 cm/s TR Peak Velocity 299.5 cm/s TR Peak Gradient 35.9 mmHg TR Mean Velocity 205.0 cm/s TR Mean Gradient 19.2 mmHg TR Velocity Time Integral 116.0 cm TV Peak E Velocity 77.0 cm/s Right Atrial Pressure 3.0 mmHg Pulmonary Artery Systolic Pressu 38.9 mmHg PV Peak Velocity 79.8 cm/s FINDINGS Left Ventricle Normal left ventricular size, systolic function and wall thickness, with no regional wall motion abnormalities. Left ventricular ejection fraction is estimated at 56 %. Grade I/IV diastolic dysfunction (abnormal relaxation filling pattern), normal to mildly elevated filling pressures. Right Ventricle Mildly increased right ventricular size. Mild pulmonary hypertension. Right Atrium The right atrium is normal in size. Left Atrium Moderately increased left atrial size. Mitral Valve Moderately thickened mitral valve. Moderate mitral valve regurgitation. Aortic Valve Structurally normal aortic valve without significant sclerosis or stenosis. There is no aortic regurgitation. Tricuspid Valve Structurally normal tricuspid valve without significant stenosis or regurgitation. Pulmonary artery systolic pressure is normal. Pulmonic Valve Mild pulmonary valve regurgitation. Pericardium Normal pericardium without effusion. Aorta Normal ascending aorta dimension. IVC The inferior vena cava appears normal. CONCLUSIONS Normal left ventricular size, systolic function and wall thickness, with no regional wall motion abnormalities. Left ventricular ejection fraction is estimated at 56 %. Grade I/IV diastolic dysfunction (abnormal relaxation filling pattern), normal to mildly elevated filling pressures. Moderately increased left atrial size. Moderately thickened mitral valve. Moderate mitral valve regurgitation. Mildly increased right ventricular size. Mild pulmonary hypertension. Right atrial pressure is around 10 mm of mercury. Emilee Tamayo MD (Electronically Signed) Final Date: 28 May 2024 06:38 S
== END 2024-05-27 12:12 | disposition home or self-care (01) ==
LOC: RAD 12:11
PROVIDERS: PCP Family Medicine; Visit Provider Nurse Practitioner Family
DX: R06.09 Other forms of dyspnea (principal); I50.30 Unspecified diastolic (congestive) heart failure; I51.7 Cardiomegaly; I34.0 Nonrheumatic mitral (valve) insufficiency; I34.81 Nonrheumatic mitral (valve) annulus calcification
CPT/HCPCS: 93306

== ENCOUNTER → 2024-07-09 10:11 | Outpatient (BNVA) | payer MEDICARE, SELFPAY | PROVIDERS: PCP Family Medicine; Visit Provider Internal Medicine Cardiovascular Disease | DX: I48.91 Unspecified atrial fibrillation (principal); R06.02 Shortness of breath | CPT/HCPCS: 36415; 80048; 83880; 93005 ==

== ENCOUNTER 2024-07-24 09:30 | Outpatient (CLI) | payer MEDICARE, SELFPAY ==
--- NOTE | 2024-07-24 | ECG_ITS ---
[facility] Test Date: 2024-07-24 Pat Name: Marika Manning Department: Room: Gender: Female [employer]: : 1940 Requested By: Mel Araujo Order Number: [id number] Reading MD: Mel Araujo M.D. Interpretive Statements Lung unchanged pre/post procedure; Intraprocedure shortess of breath; Symptoms resoled by discharge PROCEDURE: At the baseline, the EKG revealed normal sinus rhythm with frequent PVCs. Right bundle branch block. Diffuse nonspecific T wave changes. The baseline heart was 64 bpm with a blood pressue of 138/75 mm of Hg Lexiscan was infused over a period of 20 seconds. A total of 0.4 milligrams of Lexiscan was infused. The stress phase was continued for a total of 5 minutes. Heart rate at the end of the stress phase was 86 bpm with a blood pressure 201/74 mm of Hg. The EKG at the peak infusion revealed no significant changes. Sestamibi was injected 20 seconds after the Lexiscan infusion. Heart rate at the end of the recovery phase was 79 bpm with a blood pressure of 124/70 mm of Hg. CONCLUSION: 1. No significant EKG changes with the LexiScan infusion 2. No LexiScan induced chest pain or cardiac arrhythmia 3. Abnormal blood pressure response to Lexiscan infusion 4. Sestamibi/sestamibi perfusion scan pending; see separate report. Electronically Signed On 07-26-2024 14:45:37 DENTAL ASSISTANT MEDICAL ASSISTANT by Mel Araujo M.D. [email or web address]
[2024-07-24 09:36] VITALS: BMI 30.2
--- NOTE | 2024-07-24 09:47 | NMCV_ITS ---
NM jia perf SPECT r/s* [id number] Marika Manning Age: 84 Gender: F : 1940 Exam Date: 07/24/2024 10:36 Ordering Phys: Mel Araujo MD ([email or web address]) Technologist: OLIVIA Art Exam Location: [facility] Indications: cp STRESS TEST Please see separate stress test report in [facility] for full findings IMAGE PROTOCOL Rest/Stress 1 Lexiscan Day Radiopharmaceutical Dose (mCi) Administration Site Administered by Rest: Tc-99m 10.9 IV Marnie Lynch NETWORK ENGINEERING ADVISOR Sestamibi Stress:Tc-99m 32.2 IV Marnie Lynch, NETWORK ENGINEERING ADVISOR Sestamibi Rest: 24-Jul-2024 60 Discovery 630 Stress: 24-Jul-2024 30 Discovery 630 0.4mg Lexiscan. Images obtained in supine and prone position. SPECT RESULTS Technical Quality: Good Raw Data Analysis: Normal Image Corrections: No attenuation or motion correction applied Summed Stress Score: 8 Summed Rest Score: 8 Summed Difference Score: 0 PERFUSION FINDINGS Moderate area of minimal to moderately decreased tracer uptake involving the inferior, inferolateral and apical lateral regions with no significant reversibility FUNCTIONAL RESULTS (calculated via Gated SPECT) Stress Image LV EF (%): 78 Stress EDV (mL):76 TID: 1.22 Stress ESV (mL):17 FUNCTIONAL FINDINGS: Segmental wall motion analysis revealing no gross wall motion abnormalities IMPRESSIONS 1. Moderate area of minimal to moderately decreased persistent tracer uptake involving the inferior, inferolateral and apical lateral regions suggestive of mitral scarring versus attrition artifact 2. Normal LV ejection fraction 78%. 3. LV wall motion analysis revealing no gross wall motion abnormalities. 4. Normal LV volume 5. Elevated transient ischemic dilatation ratio, may suggest endocardial ischemia. However the positive predictive value of this finding in the absence of any other abnormal objective findings, is low Compared to the study from 04/12/2022, there may not be a significant change except for the elevated transient ischemic dilatation ratio Dr Mel Araujo MD FACC (Electronically Signed) Final Date: 25 July 2024 01:39 S
[2024-07-24] MEDS: regadenoson 0.4 Mg/5 ml Syringe IVP (11:02)
[2024-07-24 11:19] VITALS: BP 124/70; PULSE 78
== END 2024-07-24 09:31 | disposition home or self-care (01) ==
LOC: CDL 09:32
PROVIDERS: PCP Family Medicine; Visit Provider Internal Medicine Cardiovascular Disease
DX: R06.09 Other forms of dyspnea (principal); R94.39 Abnormal result of other cardiovascular function study
CPT/HCPCS: 36415; 78452; 93017; 96374; A9500; J2785

== ENCOUNTER → 2024-08-12 11:27 | Outpatient (BNVA) | payer MEDICARE, SELFPAY | PROVIDERS: PCP Family Medicine; Visit Provider Internal Medicine Cardiovascular Disease | DX: R07.89 Other chest pain (principal); I31.9 Disease of pericardium, unspecified; I49.9 Cardiac arrhythmia, unspecified | CPT/HCPCS: 36415; 80048; 83880; 84484; 93005; 99214 ==

== ENCOUNTER → 2024-10-09 09:59 | Outpatient (BNVA) | payer MEDICARE, SELFPAY | PROVIDERS: PCP Family Medicine; Visit Provider Nurse Practitioner Family | DX: I49.8 Other specified cardiac arrhythmias (principal); R00.1 Bradycardia, unspecified; I10 Essential (primary) hypertension | CPT/HCPCS: 99214 ==

== ENCOUNTER → 2024-11-06 09:49 | Outpatient (BNVA) | payer MEDICARE, SELFPAY | PROVIDERS: PCP Family Medicine; Visit Provider Nurse Practitioner Family | DX: R06.02 Shortness of breath (principal); I49.9 Cardiac arrhythmia, unspecified; I10 Essential (primary) hypertension; R00.1 Bradycardia, unspecified | CPT/HCPCS: 99213 ==

== ENCOUNTER 2025-04-06 15:09 | Outpatient (CLI) | payer MEDICARE, SELFPAY ==
--- NOTE | 2025-04-06 | MM_ITS ---
WS: [id number] BILATERAL 3D TOMOSYNTHESIS DIGITAL SCREENING MAMMOGRAPHY WITH CAD CLINICAL INFORMATION: ANNUAL SCREENING HISTORY: Screening mammogram. No current complaints. COMPARISON: 2023 TECHNIQUE: Bilateral CC and MLO views. FINDINGS: Scattered fibroglandular densities bilaterally. No suspicious focal mass, asymmetry, calcifications, or architectural distortion. No evidence of malignancy. A few incidental calcifications. Vascular calcification. MM/MM scr tomosynthesis [id number] IMPRESSION: DENSITY: There are scattered areas of fibroglandular density. BI-RADS: 2 - Benign. FOLLOW UP: 1 Year Follow-up Recommend return to annual screening mammography.
== END 2025-04-06 15:10 | disposition home or self-care (01) ==
LOC: RAD 15:10
PROVIDERS: PCP Physician Assistant; Visit Provider Physician Assistant
DX: Z12.31 Encounter for screening mammogram for malignant neoplasm of breast (principal); R92.323 Mammographic fibroglandular density, bilateral breasts; R92.1 Mammographic calcification found on diagnostic imaging of breast
CPT/HCPCS: 77063; 77067

== ENCOUNTER → 2025-05-21 15:17 | Outpatient (BNVA) | payer MEDICARE, SELFPAY | PROVIDERS: PCP Physician Assistant; Visit Provider Internal Medicine Cardiovascular Disease | DX: R07.9 Chest pain, unspecified (principal); R93.1 Abnormal findings on diagnostic imaging of heart and coronary circulation; I34.0 Nonrheumatic mitral (valve) insufficiency; I49.9 Cardiac arrhythmia, unspecified; I11.0 Hypertensive heart disease with heart failure; I50.32 Chronic diastolic (congestive) heart failure; I77.9 Disorder of arteries and arterioles, unspecified; Z79.02 Long term (current) use of antithrombotics/antiplatelets; Z86.73 Personal history of transient ischemic attack (TIA), and cerebral infarction without residual deficits; R06.02 Shortness of breath; I65.23 Occlusion and stenosis of bilateral carotid arteries | CPT/HCPCS: 36415; 80048; 83880; 93005; 99214 ==

== ENCOUNTER 2025-06-01 15:26 | Outpatient (CLI) | payer MEDICARE, SELFPAY ==
--- NOTE | 2025-06-01 15:45 | USCV_ITS ---
Marika Manning Age: 84 Gender: F : 1940 Exam Date: 06/01/2025 15:43 Ordering Phys: Mel Araujo MD ([email or web address]) Technologist: JAKE [place] [facility] [place]: stenosis Risk Factors: Previous Vascular Surgery: Right Brachial BP: / Left Brachial BP: / Right Left Velocity (cm/s) Spectral Plaque Velocity (cm/s) Spectral Plaque Syst/Diast Broadening Syst/Diast Broadening 66.30/ 18.10 Prox CCA 48.90 / 14.40 68.50/ 14.80 Mid CCA 55.60 / 16.30 49.00/ 15.00 Distal CCA 51.40 / 16.10 36.60/ 8.70 Prox ICA 41.60 / 12.90 41.20/ 14.10 Mid ICA 48.30 / 18.50 45.50/ 15.10 Distal ICA 53.50 / 20.80 76.10 ECA 52.80 0.70 ICA/CCA 0.80 Antegrade Vertebral Antegrade 18.30/ 3.90 cm/s 25.90/ 7.30 cm/s Tri Subclavian Tri 79.70 71.10 FINDINGS Comparison:. 03/15/21 No significant elevation of systolic or diastolic velocities. Waveforms are normal. Minimal calcified plaque in the bifurcations. CONCLUSIONS Bilateral ICA stenosis less than 50%. No interval change in stenosis since prior exam. Dr. Kathy Mckenzie DO (Electronically Signed) Final Date: 02 June 2025 07:42 S
== END 2025-06-01 15:27 | disposition home or self-care (01) ==
LOC: RAD 15:27
PROVIDERS: PCP Physician Assistant; Visit Provider Internal Medicine Cardiovascular Disease
DX: I65.23 Occlusion and stenosis of bilateral carotid arteries (principal)
CPT/HCPCS: 93880